=== PATIENT | male | born 1980 | race Caucasian/White ===

== ENCOUNTER 2024-11-07 05:40 | Day surgery (SDC) | payer OTHER ==
[~2024-11-07] VITALS: Ht 170.2 cm; Wt 95.5 kg
[2024-11-07] MEDS ORDERED: RINGERS SOLUTION,LACTATED 1,000 ML IV ONE (05:43)
[2024-11-07] MEDS ORDERED: PROPOFOL 1% ISO-OSM 1000 MG/100 ML BOTTLE ONE (06:28)
[2024-11-07] MEDS: SODIUM CHLORIDE 0.9% 1,000 ML IV ONE (06:36)
[2024-11-07] MEDS ORDERED: INSLAN SQ (06:54)
[2024-11-07] MEDS ORDERED: LOSA-424 PO (06:54)
[2024-11-07 07:00] LABS: GLUCOMETER DEV NAME(LOC) SDS.; GLUCOSE,POINT OF CARE 97 MG/DL (70-110)
[2024-11-07] MEDS ORDERED: SODIUM TETRADECYL SULFATE 3% 60 MG/2 ML VIAL IVP ONE (07:06)
[2024-11-07] MEDS ORDERED: FLUMAZENIL 0.1 MG/ML 5 ML VIAL IVP ONE (07:06)
[2024-11-07] MEDS ORDERED: NALOXONE HCL 0.4 MG/ML VIAL ONE (07:06)
[2024-11-07] MEDS ORDERED: DiphenhydrAMINE HCL 50 MG/ML VIAL ONE (07:06)
[2024-11-07] MEDS ORDERED: ATROPINE SULFATE 0.1 MG/ML 10 ML SYRINGE IVP ONE (07:07)
[2024-11-07] MEDS ORDERED: EPINEPHrine 1:10,000 [1 MG/10 ML] SYRINGE ONE (07:07)
[2024-11-07] MEDS ORDERED: OXYGEN THERAPY IH SCH (20:00)
== END 2024-11-07 10:20 | disposition home or self-care (01) ==
LOC: SURGERY 05:40
PROVIDERS: ATTEND Specialist
DX: K62.5 Hemorrhage of anus and rectum (principal); K62.1 Rectal polyp; K64.0 First degree hemorrhoids; E11.9 Type 2 diabetes mellitus without complications; I10 Essential (primary) hypertension; Z79.899 Other long term (current) drug therapy; Z98.890 Other specified postprocedural states
CPT/HCPCS: 45385; 82962; J2704; J7120; J0171; J0461; J1200; J2310; J3490

== ENCOUNTER 2025-01-22 09:31 | Inpatient (IN) | payer OTHER ==
[~2025-01-22] VITALS: Ht 170.2 cm; Wt 100.0 kg
[~2025-01-22 09:31] MED LIST: INSLAN SQ; LOSA-424 PO
[2025-01-22] MEDS ORDERED: GLIP2.5T28 PO (09:55)
[2025-01-22] MEDS ORDERED: VASCEPA PO (09:55)
[2025-01-22] MEDS ORDERED: CARV12 PO (09:55)
[2025-01-22] MEDS ORDERED: METF-81 PO (09:55)
[2025-01-22 10:13] LABS: PLATELET COUNT (AUTO) 251 K/uL (150-450); RED BLOOD CELL COUNT(AUTO) 3.50 MIL/uL (4.50-5.90); RED CELL DISTRIBUTION WIDTH 14.0 % (11.5-14.5); WHITE BLOOD COUNT (AUTO) 7.7 K/uL (4.5-11.0)
[2025-01-22 10:15] LABS: CALCIUM, TOTAL 8.2 mg/dL (8.8-10.5); CREATININE 1.00 mg/dL (0.60-1.30); GLOMERULAR FILTR. RATE CALC > 60 mL/min (>60); GLUCOSE,RANDOM 179 mg/dL (70-110); SODIUM SERUM 139 mmol/L (136-145); UREA NITROGEN, BLOOD 15 mg/dL (7-18)
[2025-01-22 10:22] LABS: COVID AG,FIA SOURCE NASAL SWAB
[2025-01-22 11:03] LABS: INFLUENZA TYPE A NEGATIVE FOR TYPE A (NEGATIVE); INFLUENZA TYPE B NEGATIVE FOR TYPE B (NEGATIVE); SARS-COV2 (COVID) ANTIGEN,FIA Negative (Negative)
[2025-01-22 16:20] VITALS: BP 180/99; PULSE 72; RESP 18; TEMP 98.4; O2SAT 0
[2025-01-22] MEDS ORDERED: PEG 400/HYPROMELLOSE/GLYCERIN 15 ML OPHTHALMIC SOLUTION OU PRN (16:45)
[2025-01-22 16:51] LABS: GLUCOMETER DEV NAME(LOC) 6S.2; GLUCOSE,POINT OF CARE 112 MG/DL (70-110)
[2025-01-22 17:21] VITALS: BP 134/89; PULSE 71; RESP 18; TEMP 98.4; O2SAT 100
[2025-01-22] MEDS: PEG 400/HYPROMELLOSE/GLYCERIN 15 ML OPHTHALMIC SOLUTION OU SCH (20:31)
[2025-01-22] MEDS: INSULIN GLARGINE,HUM.REC.ANLOG 100 UNITS/ML SQ SCH (20:48)
[2025-01-22] MEDS ORDERED: SODIUM CHLORIDE 3% 15 ML NEB SOLUTION NEB ONE (22:12)
[2025-01-23 04:15] VITALS: BP 145/85; PULSE 78; RESP 18; TEMP 98.4; O2SAT 98
[2025-01-23 04:35] LABS: MTB PCR w/Rif. Resistance-SPUT NOT DETECTED (Not Detectd)
[2025-01-23 06:05] LABS: GLUCOMETER DEV NAME(LOC) 6N.2C; GLUCOSE,POINT OF CARE 203 MG/DL (70-110)
[2025-01-23 06:06] LABS: GLUCOMETER DEV NAME(LOC) 6N.2C; GLUCOSE,POINT OF CARE 123 MG/DL (70-110)
[2025-01-23 06:29] LABS: MTB PCR w/Rif. Resistance-SPUT NOT DETECTED (Not Detectd)
[2025-01-23] MEDS: LOSARTAN POTASSIUM 50 MG TABLET PO SCH (08:32)
[2025-01-23] MEDS: MetFORMIN HCL 500 MG ER TABLET PO SCH (08:32)
[2025-01-23] MEDS: GlipiZIDE ER 2.5 MG ER TABLET PO SCH (08:32)
[2025-01-23] MEDS ORDERED: DEXTROSE 50%-WATER 25 GM/50 ML SYRINGE IVP PRN (15:45)
[2025-01-23 19:05] LABS: GLUCOMETER DEV NAME(LOC) 6N.2C; GLUCOSE,POINT OF CARE 132 MG/DL (70-110)
[2025-01-23 19:05] LABS: GLUCOMETER DEV NAME(LOC) 6N.2C; GLUCOSE,POINT OF CARE 173 MG/DL (70-110)
[2025-01-23 19:58] VITALS: BP 142/85; PULSE 75; RESP 18; TEMP 98.2; O2SAT 98
[2025-01-23 22:41] LABS: GLUCOMETER DEV NAME(LOC) 6N.2C; GLUCOSE,POINT OF CARE 92 MG/DL (70-110)
[2025-01-24 04:33] VITALS: BP 126/82; PULSE 69; RESP 18; TEMP 98.1; O2SAT 97
[2025-01-24 06:46] LABS: GLUCOMETER DEV NAME(LOC) 6N.2C; GLUCOSE,POINT OF CARE 93 MG/DL (70-110)
[2025-01-24 08:37] VITALS: BP 141/91; PULSE 71; RESP 18; TEMP 98.1; O2SAT 97
[2025-01-24 18:50] LABS: GLUCOMETER DEV NAME(LOC) 6S.2; GLUCOSE,POINT OF CARE 59 MG/DL (70-110)
[2025-01-24 18:50] LABS: GLUCOMETER DEV NAME(LOC) 6S.2; GLUCOSE,POINT OF CARE 163 MG/DL (70-110)
[2025-01-24 18:50] LABS: GLUCOMETER DEV NAME(LOC) 6S.2; GLUCOSE,POINT OF CARE 93 MG/DL (70-110)
[2025-01-24 20:00] VITALS: BP 149/90; PULSE 70; RESP 18; TEMP 98.2; O2SAT 97
[2025-01-24 22:41] LABS: GLUCOMETER DEV NAME(LOC) 6S.2; GLUCOSE,POINT OF CARE 108 MG/DL (70-110)
[2025-01-25 06:07] VITALS: BP 150/90; PULSE 70; RESP 18; TEMP 97.5; O2SAT 96
[2025-01-25] MEDS: INSULIN LISPRO 100 UNITS/ML SQ PRN (06:36)
[2025-01-25 08:34] VITALS: BP 129/77; PULSE 72; RESP 18; TEMP 97.6; O2SAT 98
[2025-01-25 16:26] LABS: GLUCOMETER DEV NAME(LOC) 6N.2C; GLUCOSE,POINT OF CARE 232 MG/DL (70-110)
[2025-01-25 16:35] LABS: GLUCOMETER DEV NAME(LOC) 6N.2C; GLUCOSE,POINT OF CARE 124 MG/DL (70-110)
[2025-01-25 19:41] LABS: GLUCOMETER DEV NAME(LOC) 6S.2; GLUCOSE,POINT OF CARE 142 MG/DL (70-110)
[2025-01-25 20:23] VITALS: BP 110/72; PULSE 68; RESP 18; TEMP 98.9; O2SAT 98
[2025-01-26 04:46] VITALS: BP 116/77; PULSE 63; RESP 18; TEMP 97.6; O2SAT 98
[2025-01-26 06:05] LABS: GLUCOMETER DEV NAME(LOC) 6S.2; GLUCOSE,POINT OF CARE 132 MG/DL (70-110)
[2025-01-26 06:06] LABS: GLUCOMETER DEV NAME(LOC) 6S.2; GLUCOSE,POINT OF CARE 118 MG/DL (70-110)
[2025-01-26 08:35] VITALS: BP 129/82; PULSE 64; RESP 18; TEMP 97.9; O2SAT 97
[2025-01-26 11:51] LABS: GLUCOMETER DEV NAME(LOC) 6N.2C; GLUCOSE,POINT OF CARE 262 MG/DL (70-110)
[2025-01-26 18:50] LABS: GLUCOMETER DEV NAME(LOC) 6S.2; GLUCOSE,POINT OF CARE 66 MG/DL (70-110)
[2025-01-26 18:50] LABS: GLUCOMETER DEV NAME(LOC) 6S.2; GLUCOSE,POINT OF CARE 129 MG/DL (70-110)
[2025-01-26 20:27] VITALS: BP 128/78; PULSE 78; RESP 18; TEMP 98.4; O2SAT 98
[2025-01-27 05:34] VITALS: BP 119/77; PULSE 71; RESP 18; TEMP 98.1; O2SAT 98
[2025-01-27 05:36] LABS: GLUCOMETER DEV NAME(LOC) 6N.2C; GLUCOSE,POINT OF CARE 184 MG/DL (70-110)
[2025-01-27 07:38] VITALS: BP 113/79; PULSE 70; RESP 20; TEMP 97.8; O2SAT 96
[2025-01-27 07:41] LABS: GLUCOMETER DEV NAME(LOC) 6S.2; GLUCOSE,POINT OF CARE 100 MG/DL (70-110)
[2025-01-27 16:25] LABS: GLUCOMETER DEV NAME(LOC) 6S.2; GLUCOSE,POINT OF CARE 211 MG/DL (70-110)
[2025-01-27 19:16] VITALS: BP 124/80; PULSE 78; RESP 18; TEMP 98.1; O2SAT 97
[2025-01-27 19:36] LABS: GLUCOMETER DEV NAME(LOC) 6S.2; GLUCOSE,POINT OF CARE 120 MG/DL (70-110)
[2025-01-27 23:56] LABS: GLUCOMETER DEV NAME(LOC) 6N.2C; GLUCOSE,POINT OF CARE 174 MG/DL (70-110)
[2025-01-28 04:45] VITALS: BP 126/94; PULSE 78; RESP 18; TEMP 98.2; O2SAT 96
[2025-01-28 05:50] LABS: GLUCOMETER DEV NAME(LOC) 6N.2C; GLUCOSE,POINT OF CARE 148 MG/DL (70-110)
[2025-01-28 08:52] VITALS: BP 127/86; PULSE 70; RESP 18; TEMP 98.1; O2SAT 99
[2025-01-28 17:06] LABS: GLUCOMETER DEV NAME(LOC) 6N.2C; GLUCOSE,POINT OF CARE 170 MG/DL (70-110)
[2025-01-28 18:05] LABS: GLUCOMETER DEV NAME(LOC) 6N.2C; GLUCOSE,POINT OF CARE 75 MG/DL (70-110)
[2025-01-29 06:07] LABS: QUANTIFERON+, Nil Value 0.04 IU/mL; QUANTIFERON+,Mitogen Value >10.00 IU/mL; QUANTIFERON+,TB1 Antigen Value 0.50 IU/mL; QUANTIFERON+,TB2 Antigen Value 0.43 IU/mL; QUANTIFERON, TB GOLD PLUS Positive (Negative)
== END 2025-01-28 20:05 | DRG 179 ==
LOC: EMS 09:33 → EDH 13:50 → 6S 15:58
PROVIDERS: ADMIT Internal Medicine; ATTEND Internal Medicine
DX: A15.9 Respiratory tuberculosis unspecified (principal); I10 Essential (primary) hypertension; E11.9 Type 2 diabetes mellitus without complications; E78.5 Hyperlipidemia, unspecified; Z20.822 Contact with and (suspected) exposure to COVID-19
CPT/HCPCS: 71046; 71250; 80048; 82962; 85025; 86480; 87015; 87206; 87389; 87556; 87804; 94640; 99285; J1815; 36415-L1; 36415-TC